=== PATIENT | male | born 1990 | race Caucasian/White ===

== ENCOUNTER 2023-07-19 12:14 | Outpatient (CLI) | payer OTHER, SELFPAY ==
--- NOTE | 2023-07-19 12:30 | US_ITS ---
WS: [id number] THYROID ULTRASOUND HISTORY: thyroid COMPARISON: None available. Right lobe: 1.4 cm x 1.5 cm x 5.1 cm (w x ap x l). Volume: 5.5 cm3. Normal size thyroid. Very mild heterogeneity. There are probably a few very tiny colloid cyst present . No increased vascularity. Left lobe: 1.5 cm x 1.6 cm x 4.7 cm (w x ap x l). Volume: 5.8 cm3. Normal size and echotexture. No significant or dominant nodules are present. Isthmus: 0.4 cm. IMPRESSION: Unremarkable thyroid ultrasound. No solid masses or hypervascularity.
== END 2023-07-19 12:15 | disposition home or self-care (01) ==
LOC: RAD 12:14
PROVIDERS: PCP Nurse Practitioner Family; Visit Provider Otolaryngology
DX: E04.9 Nontoxic goiter, unspecified (principal); Z86.19 Personal history of other infectious and parasitic diseases
CPT/HCPCS: 76536

== ENCOUNTER → 2023-08-31 10:04 | Outpatient (BNVA) | payer OTHER, SELFPAY | PROVIDERS: PCP Nurse Practitioner Family; Visit Provider Internal Medicine Rheumatology | DX: Z79.899 Other long term (current) drug therapy (principal); M19.90 Unspecified osteoarthritis, unspecified site; M62.81 Muscle weakness (generalized); R76.8 Other specified abnormal immunological findings in serum; M45.6 Ankylosing spondylitis lumbar region; Z71.85 Encounter for immunization safety counseling; R76.0 Raised antibody titer | CPT/HCPCS: 36415; 80076; 82085; 82306; 82550; 82565; 83520; 85025; 85651; 86160; 86162; 86235; 86255; 86376; 86800; 86812 ==

== ENCOUNTER 2023-12-28 13:04 | Outpatient (CLI) | payer OTHER, SELFPAY ==
[2023-12-28 13:30] LABS: Basophils # 0.1 10^3/uL (0.0-0.1); Basophils % 1.2 %; Eosinophils % 0.5 %; Hematocrit 47.1 % (37-53); Lymphocytes % 23.8 %; Mean Corpuscular HGB Conc 33.5 g/dL (30-55); Mean Corpuscular Hemoglobin 30.7 pg (27-33); Mean Corpuscular Volume 91.5 fl (82-101); Mean Platelet Volume 10.8 fL (7.4-10.4); Monocytes # 0.4 10^3/uL (0.2-0.9); Monocytes % 9.2 %; Neutrophils # 2.77 10^3/uL (1.8-7.7); Neutrophils % 65.3 %; Nucleated Red Blood Cells % 0 %; Platelet Count 163 10^3/cmm (157-399); Red Blood Count 5.15 10^6/uL (3.85-5.65); Red Cell Distribution Width 12.3 % (12.1-15.1); White Blood Count 4.24 10^3/uL (3.29-11.43)
[2023-12-28 13:53] LABS: Alanine Aminotransferase 30 U/L (0-41); Albumin Level 4.7 g/dL (3.5-5.2); Alkaline Phosphatase 90 U/L (40-130); Aspartate Amino Transferase 17 U/L (0-40); Globulin 2.3 g/dL (1.3-4.6); Glomerular Filtration Rate 98.4 mL/min (90-130); Total Bilirubin 0.6 mg/dL (0.15-1.2)
== END 2023-12-28 13:05 | disposition home or self-care (01) ==
LOC: LAB 13:05
PROVIDERS: PCP Nurse Practitioner Family; Visit Provider Internal Medicine Rheumatology
DX: Z79.899 Other long term (current) drug therapy (principal); M19.90 Unspecified osteoarthritis, unspecified site
CPT/HCPCS: 36415; 80076; 82565; 85025; 86140

== ENCOUNTER 2024-11-19 11:51 | Outpatient (RCR) | payer OTHER, SELFPAY | END 2024-12-16 23:59 | disposition home or self-care (01) | LOC: SPT 11:51 | PROVIDERS: PCP Nurse Practitioner Family; Visit Provider Nurse Practitioner Family | DX: M54.50 Low back pain, unspecified (principal); G89.29 Other chronic pain | CPT/HCPCS: 97161 ==